=== PATIENT | male | born 1965 | race Two or more races ===

== ENCOUNTER 2023-09-17 14:00 | Emergency (ER) | payer SELFPAY ==
[2023-09-17 14:06] VITALS: BP 146/93; PULSE 73; TEMP 36.9; O2SAT 97; BMI 45.8
--- NOTE | 2023-09-17 14:22 | ED.MALEGU1 ---
HPI - Male Genitourinary General Chief complaint: Urogenital-Male Stated complaint: ABDOMINAL/GROIN PAIN Time Seen by Provider: 09/17/23 14:13 Source: patient and family Mode of arrival: walk-in Limitations: no limitations History of Present Illness HPI Narrative: Patient is a 58-year-old Male who presents to the emergency department for the evaluation of testicular pain for the last 2 days. He reports pain in the right testicle rating to the right groin. He states he has had any increased in urination although he does not have any pain or discomfort. He has had no significant abdominal pain, fevers or vomiting. He has not noticed any drainage from the scrotum. Related Data Home Medications ?Medication ?Instructions ?Recorded ?Confirmed metformin 500 mg tablet 500 mg PO DAILY 09/17/23 09/17/23 Previous Rx's ?Medication ?Instructions ?Recorded tramadol 50 mg tablet 50 mg PO Q4H PRN pain 3 days #15 09/17/23 tabs Allergies Allergy/AdvReac Type Severity Reaction Status Date / Time No Known Drug Allergies Allergy Verified 09/17/23 14:05 Review of Systems ROS Constitutional Denies: fever or chills Ears, nose, mouth, and throat Denies: throat pain or nasal congestion Cardiovascular Denies: chest pain Respiratory Denies: shortness of breath or cough Gastrointestinal Denies: abdominal pain, nausea, vomiting or diarrhea Genitourinary Reports: urinary frequency, testicular pain and scrotal swelling; Denies: painful urination Musculoskeletal Denies: back pain or neck pain Integumentary/Breast Denies: rash Neurological Denies: headache Hematologic/Lymphatic Denies: easy bruising or easy bleeding Exam Narrative Exam Narrative: Gen.: Awake, alert, in no distress Head: Normocephalic, atraumatic ENT: Moist mucous membranes Respiratory: No respiratory distress Gastrointestinal: Abdomen is soft, nondistended and nontender to palpation : No redness, induration or swelling of the scrotum, testicles are palpated bilaterally, mildly retracted. Penis is uncircumcised, no redness or drainage noted. No palpable groin swelling or mass, no palpable hernia. Cynthia Patel RN at bedside throughout the duration of the exam Extremities: Moves extremities equally Psych: Normal mood and affect Neuro: No focal neuro deficit Skin: Warm, dry, intact Constitutional Vital Signs, click to edit/add: Last Vital Signs Temp 98.5 F 09/17/23 14:06 Pulse 73 09/17/23 14:06 Resp 18 09/17/23 14:06 BP 146/93 H 09/17/23 14:06 Pulse Ox 97 09/17/23 14:06 O2 Del Method Room Air 09/17/23 14:06 Course Vital Signs Vital signs: Vital Signs Temperature 98.5 F 09/17/23 14:06 Pulse Rate 73 09/17/23 14:06 Respiratory Rate 18 09/17/23 14:06 Blood Pressure 146/93 H 09/17/23 14:06 Pulse Oximetry 97 09/17/23 14:06 Oxygen Delivery Method Room Air 09/17/23 14:06 Temperature 98.5 F 09/17/23 14:06 Pulse Rate 73 09/17/23 14:06 Respiratory Rate 18 09/17/23 14:06 Blood Pressure 146/93 H 09/17/23 14:06 Pulse Oximetry 97 09/17/23 14:06 Oxygen Delivery Method Room Air 09/17/23 14:06 MDM - Male Genitourinary MDM Narrative Medical decision making narrative: Labs are unremarkable, abdomen is soft and benign and the patient has no flank tenderness, abdominal tenderness. He declined any medication for pain. Urine specimen shows a minimal amount of blood, no infection. Ultrasound shows bilateral small hydroceles with no other acute abnormalities. Patient is referred to urology. He was reevaluated by attending physician prior to discharge. Urine culture will be added and he is given a short course of analgesics for home. Follow-up with PCP and urology and return to the ER if symptoms change or worsen. Medical Records Attestation: I reviewed the patient's medical records. Lab Data Attestation: I reviewed the patient's lab results. Labs: Lab Results 09/17/23 09/17/23 Range/Units 14:14 14:37 WBC 6.1 (4.0-11.0) 10^3/uL RBC 5.07 (4.70-6.10) 10^6/uL Hgb 15.3 (14.0-18.0) g/dL Hct 46.4 (42.0-54.0) % MCV 91.5 (80.0-94.0) fL MCH 30.2 (25.9-34.0) pg MCHC 33.0 (29.9-35.2) g/dL RDW 12.9 (11.0-15.0) % Plt Count 217 (150-450) 10^3/uL MPV 9.9 (9.5-13.5) fL Neut % (Auto) 73.0 (43.0-75.0) % Lymph % (Auto) 18.9 L (20.5-60.0) % [place] % (Auto) 5.9 (1.7-12.0) % Eos % (Auto) 1.6 (0.9-7.0) % Baso % (Auto) 0.3 (0.2-2.0) % Neut # (Auto) 4.5 (1.4-6.5) 10^3/uL Lymph # (Auto) 1.2 (1.2-3.8) 10^3/uL [place] # (Auto) 0.4 (0.3-0.8) 10^3/uL Eos # (Auto) 0.1 (0.0-0.7) 10^3/uL Baso # (Auto) 0.0 (0.0-0.1) 10^3/uL Abs Immat Gran (auto) 0.02 (0.00-0.03) 10^3/uL Imm/Tot Granulo (auto) 0.3 (0.0-0.5) % Sodium 137 (136-145) mmol/L Potassium 4.1 (3.5-5.1) mmol/L Chloride 100 (98-107) mmol/L Carbon Dioxide 26.0 (21.0-32.0) mmol/L Anion Gap 15.1 BUN 16.0 (7.0-18.0) mg/dL Creatinine 0.86 (0.70-1.30) mg/dL Est GFR ( Amer) >60 (>=60) Est GFR (Non-Af Amer) >60 (>=60) BUN/Creatinine Ratio 18.6 Glucose 304 H (74-106) mg/dL Calcium 8.4 L (8.5-10.1) mg/dL Total Bilirubin 0.3 (0.2-1.0) mg/dL AST 11 L (15-37) U/L ALT 22 (16-63) U/L Alkaline Phosphatase 97 (46-116) U/L Total Protein 7.2 (6.4-8.2) g/dL Albumin 3.4 (3.4-5.0) g/dL Globulin 3.8 g/dL Albumin/Globulin Ratio 0.9 Urine Color Lt. yellow (YELLOW) Urine Clarity Clear (CLEAR) Urine pH 6.5 (5.0-9.0) Ur Specific [place] 1.020 (1.005-1.025) Urine Protein Negative (NEG/TRACE) mg/dL Urine Glucose (UA) >=1000 A (NEGATIVE) mg/dL Urine Ketones Negative (NEGATIVE) mg/dL Urine Occult Blood Negative (NEGATIVE) Urine Nitrite Negative (NEGATIVE) Urine Bilirubin Negative (NEGATIVE) Urine Urobilinogen 0.2 (0.2-1.0) EU/dL Ur Leukocyte Esterase Trace A (NEGATIVE) Urine RBC 0-2 (0-2) #/HPF Urine WBC 0-2 A (NONE SEEN) #/HPF Ur Squamous Epith Cells Rare (NONE/RARE) #/LPF Urine Crystals None seen (None Seen) #/HPF Urine Bacteria Trace A (NONE SEEN) #/HPF Urine Casts None seen (NONE SEEN) #/LPF Urine Mucus None seen (NONE SEEN) Ur Culture Indicated? No Imaging Data US - abdomen: Attestation: I have reviewed the pertinent imaging results. Radiologist's impression: ITS Impressions Scrotum Ultrasound 09/17/23 14:25 IMPRESSION: 1. Small bilateral hydroceles of uncertain etiology. 2. Otherwise unremarkable testicles and epididymides. Electronically authenticated by: KARTHIK BELTRAN Date: 09/17/2023 15:48 Discharge Plan Discharge Stand Alone Forms: Portal Instructions Chief Complaint: Urogenital-Male Clinical Impression: Groin pain Patient Disposition: Home, Self-Care Time of Disposition Decision: 16:06 Condition: Good Prescriptions / Home Meds: New tramadol 50 mg tablet 50 mg PO Q4H PRN (Reason: pain) 3 Days Qty: 15 0RF Rx Instructions: DX: R10.9 No Action metformin 500 mg tablet 500 mg PO DAILY Print Language: [place] Instructions: Groin Pain (ED) Referrals: Physician,Non-Staff, [Primary Care Provider] - 1 week Roshan Andrews MD [Physician] - 1 week
--- NOTE | 2023-09-17 14:25 | US_ITS ---
[place] [id number] Patient Name: SAVANNAH LOPES MRN: [id number] date: 1965 Sex: M Assigned Patient Location: ER Current Patient Location: ER Accession/Order Number: [id number] Exam Date: 09/17/2023 14:47 Report Date: 09/17/2023 15:48 At the request of: JAC OLIVA Procedure: US scrotum EXAMINATION: US scrotum HISTORY: testicle pain, swelling COMPARISON: No relevant comparison available. TECHNIQUE: High-resolution sonographic imaging of the scrotum and contents was performed. FINDINGS: RIGHT: TESTICLE: Homogeneous echotexture. No visible mass. Color Doppler flow is present. Spectral Doppler demonstrates normal arterial waveform and flow, 4/2 cm/s (PSV/EDV), and normal venous wave flow averaging 2 cm/s. EPIDIDYMIS: Normal size and echogenicity. OTHER: Small amount of free fluid. LEFT: TESTICLE: Homogeneous echotexture. No visible mass. Color Doppler flow is present. Spectral Doppler demonstrates arterial waveform and flow, 3/2 cm/s (PSV/EDV), and normal venous flow averaging 1 cm/s. EPIDIDYMIS: Normal size and echogenicity. OTHER: Small amount of free fluid. US/US scrotum IMPRESSION: 1. Small bilateral hydroceles of uncertain etiology. 2. Otherwise unremarkable testicles and epididymides. Electronically authenticated by: KARTHIK BELTRAN Date: 09/17/2023 15:48
[2023-09-17 14:33] LABS: Bilirubin Urine NEGATIVE (NEGATIVE); Blood Urine NEGATIVE (NEGATIVE); Clarity Urine CLEAR (CLEAR); Color Urine LT. YELLOW (YELLOW); Glucose Urine UA >=1000 mg/dL (NEGATIVE); Ketones Urine NEGATIVE (NEGATIVE); Leukocyte Esterase Urine TRACE (NEGATIVE); Nitrite Urine NEGATIVE (NEGATIVE); Protein Urine NEGATIVE (NEG/TRACE); Urobilinogen Urine 0.2 EU/dL (0.2-1.0); pH Urine 6.5 (5.0-9.0)
[2023-09-17 14:40] LABS: Urine Microscopic Indicated YES
[2023-09-17 14:42] LABS: Basophils Percent Auto 0.3 % (0.2-2.0); Eosinophils Absolute Auto 0.1 10^3/uL (0.0-0.7); Eosinophils Percent Auto 1.6 % (0.9-7.0); Hematocrit 46.4 % (42.0-54.0); Hemoglobin 15.3 g/dL (14.0-18.0); Immature Granulocytes Abs Auto 0.02 10^3/uL (0.00-0.03); Immature Granulocytes Pct Auto 0.3 % (0.0-0.5); Lymphocytes Absolute Auto 1.2 10^3/uL (1.2-3.8); Lymphocytes Percent Auto 18.9 % (20.5-60.0); Mean Corpuscular Hemoglobin 30.2 pg (25.9-34.0); Mean Corpuscular Volume 91.5 fL (80.0-94.0); Mean Platelet Volume 9.9 fL (9.5-13.5); Monocytes Absolute Auto 0.4 10^3/uL (0.3-0.8); Monocytes Percent Auto 5.9 % (1.7-12.0); Neutrophils Absolute Auto 4.5 10^3/uL (1.4-6.5); Platelet Count 217 10^3/uL (150-450); Red Blood Count 5.07 10^6/uL (4.70-6.10); Red Cell Distribution Width 12.9 % (11.0-15.0); White Blood Count 6.1 10^3/uL (4.0-11.0)
[2023-09-17 14:44] LABS: Bacteria Urine TRACE #/HPF (NONE SEEN); Cast Seen? NONE SEEN #/LPF (NONE SEEN); Crystals Seen? None Seen #/HPF (None Seen); Mucus Urine NONE SEEN (NONE SEEN); RBC Urine 0-2 #/HPF (0-2); Squamous Epithelial Cell Urine RARE #/LPF (NONE/RARE); Urine Culture Indicated NO; WBC Urine 0-2 #/HPF (NONE SEEN)
[2023-09-17 15:20] LABS: Alanine Aminotransferase 22 U/L (16-63); Albumin Globulin Ratio 0.9; Albumin Level 3.4 g/dL (3.4-5.0); Alkaline Phosphatase 97 U/L (46-116); Anion Gap 15.1; Aspartate Amino Transferase 11 U/L (15-37); BUN Creatinine Ratio 18.6; Bilirubin Total 0.3 mg/dL (0.2-1.0); Calcium 8.4 mg/dL (8.5-10.1); Chloride 100 mmol/L (98-107); Estimated GFR (African America >60 (>=60); Estimated GFR (Non-African Ame >60 (>=60); Globulin 3.8 g/dL; Glucose 304 mg/dL (74-106); Potassium 4.1 mmol/L (3.5-5.1); Sodium 137 mmol/L (136-145); Total Protein 7.2 g/dL (6.4-8.2)
== END 2023-09-17 16:32 | disposition home or self-care (01) ==
PROVIDERS: Physician Assistant; Emergency Provider Emergency Medicine
DX: R10.30 Lower abdominal pain, unspecified (principal); N43.3 Hydrocele, unspecified; Z79.84 Long term (current) use of oral hypoglycemic drugs
CPT/HCPCS: 36415; 76870; 80053; 81001; 85025; 87086; 99285